=== PATIENT | male | born 1970 | race Caucasian/White ===

== ENCOUNTER 2018-12-09 12:22 | Outpatient (CLI) | payer OTHER | END 2018-12-10 15:00 | disposition home or self-care (01) | LOC: RAD 12:22 | DX: M54.2 Cervicalgia (principal) ==

== ENCOUNTER 2023-05-25 09:26 | Outpatient (CLI) | payer OTHER | END 2023-05-25 09:35 | disposition home or self-care (01) | LOC: SONOGRAMA 09:26 | PROVIDERS: ATTEND Internal Medicine Gastroenterology | DX: R74.8 Abnormal levels of other serum enzymes (principal) ==

== ENCOUNTER 2023-05-28 10:16 | Outpatient (CLI) | payer OTHER | END 2023-05-28 10:18 | disposition home or self-care (01) | LOC: NUCLEAR 10:16 | PROVIDERS: ATTEND Internal Medicine Cardiovascular Disease | DX: G45.9 Transient cerebral ischemic attack, unspecified (principal) ==